=== PATIENT | female | born 1975 | race Caucasian/White ===

== ENCOUNTER 2016-09-28 23:07 | Emergency (ER) | payer OTHER ==
--- NOTE | 2016-09-29 00:43 | EDDOCDS ---
Physician Documentation [facility] Name: Xuan Padron Age: 41 yrs Sex: Female : 1975 Arrival Date: 09/28/2016 Time: 23:07 Bed I4 / M4 Private MD: No Pcp Disposition: 09/29/16 00:17 Discharged to Home/Self Care. Impression: Acute upper respiratory infections of multiple and unspecified sites. - Condition is Stable. - Discharge Instructions: Cool Mist Vaporizers, Upper Respiratory Infection, Adult, Bwmg-fg-Lgpt, Viral Infections, Hqfx-Sx-Uwzb. - Medication Reconciliation, Work Release Form - 1 day, Local Pharmacy Hours form. - [facility]; When: Call to arrange an appointment; Reason: Further diagnostic work-up, Recheck today's complaints, Continuance of care. - Problem is new. - Symptoms are unchanged. Historical: - Allergies: dairy; SEASONAL ALLERGIES; - Home Meds: 1. albuterol sulfate 90 mcg/actuation Inhl aepb 2 puffs prn as needed (Last dose: 09/28/2016 19:30) 2. Zyrtec 10 mg Oral tab 1 tab once daily - PMHx: Asthma; Heart Murmur; pulmonary valve stenosis; - PSHx: Cervical Fusion; Uterine Ablation; - Social history: Smoking status: Patient uses tobacco products, heavy tobacco smoker. No barriers to communication noted, The patient speaks fluent Malay, Speaks appropriately for age, Preferred Language: Malay. - Family history: Not pertinent. - : The pt / caregiver states he / she is not on anticoagulants. Home medication list is obtained from the patient. - Exposure Risk Screening:: None identified. 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 5 in. (165.10 cm) (R); Pain 7/10; 23:09 Body Mass Index 41.60 (113.40 kg, 165.10 cm) gr2 Signatures: Saulo Raines LPN WIGS SALESPERSON rw1 Kamlesh Santizo PA PA btw OgdenMelissa,RN RN ko2 [facility]
--- NOTE | 2016-09-29 00:43 | EDDOCDS ---
Nurse's Notes [facility] Name: Xuan Padron Age: 41 yrs Sex: Female : 1975 Arrival Date: 09/28/2016 Time: 23:07 Bed I4 / M4 Private MD: No Pcp Diagnosis: Acute upper respiratory infections of multiple and unspecified sites Presentation: 09/28 23:22 Presenting complaint: Patient states: hurt all over, coughing and feels like "head is ko2 going to explode with shooting pains in chest and i've been freezing." Pt states everyone at work has had a virus. Adult Sepsis Screening: The patient does not have new or worsening altered mentation. Patient's respiratory rate is less than 22. Systolic blood pressure is greater than 100. Patient has a qSOFA score of 0- Negative Sepsis Screen. Suicide/Homicide risk assessment- the patient denies having any suicidal and/or homicidal ideations and does not present with any other emotional, behavioral or mental health complaints. Status: Patient is not a appliance service representative or dependent. Transition of care: patient was not received from another setting of care. 23:22 Acuity: USAMA Level 4 ko2 23:22 Method Of Arrival: Walkin/Carried/Asstd ko2 Triage Assessment: 23:25 General: Appears in no apparent distress, Behavior is appropriate for age, cooperative. ko2 Pain: Location: All Over. HIV screening NA for this visit Offered previously. The patient is triaged at the bedside. See Assessment in Nurses Notes section of ED record. Neurological: Level of Consciousness is awake, alert, Oriented to person, place, time. Respiratory: Airway is patent Respiratory effort is even, unlabored, Respiratory pattern is regular, symmetrical. Respiratory: Breath sounds are diminished bilaterally. Derm: Skin is normal. Musculoskeletal: Range of motion intact in all extremities. 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 albuterol sulfate 90 mcg/actuation Inhl aepb 2 puffs prn as needed (Last dose: 09/28/2016 19:30) 2. Zyrtec 10 mg Oral tab 1 tab once daily - PMHx: Asthma; Heart Murmur; pulmonary valve stenosis; - PSHx: Cervical Fusion; Uterine Ablation; - Social history: Smoking status: Patient uses tobacco products, heavy tobacco smoker. No barriers to communication noted, The patient speaks fluent Slovenian, Speaks appropriately for age, Preferred Language: Slovenian. - Family history: Not pertinent. - : The pt / caregiver states he / she is not on anticoagulants. Home medication list is obtained from the patient. - Exposure Risk Screening:: None identified. Screenin:26 Screening information is obtained from the patient. Fall risk: No risks identified. ko2 Assistance ADL's: requires no assistance with activities of daily living. Abuse/DV Screen: The patient / caregiver reports he/she is: not in a situation that causes fear, pain or injury. Nutritional screening: No deficits noted. Advance Directives: Currently, there is no health care proxy. There is no active DNR order. There is no living will. There is no Power of Kraft Digester Operator. home support is adequate. Assessment: 09/29 00:40 Reassessment: Patient appears in no apparent distress at this time. rw1 Vital Signs: 09/28 23:09 BP 144 / 75; Pulse 111; Resp 18 S; Temp 101.0(O); Pulse Ox 96% on R/A; Weight 113.4 kg gr2 (R); Height 5 ft. 5 in. (165.10 cm) (R); Pain 7/10; 23:09 Body Mass Index 41.60 (113.40 kg, 165.10 cm) gr2 Vitals: 23:09 Log In Time: September 28, 2016 at 23:09. gr2 ED Course: 23:08 Patient visited by Tammy Stark. gr2 23:08 Patient moved to Waiting gr2 23:09 No Pcp is Private Physician. gr2 23:10 Patient visited by Tammy Stark. gr2 23:10 Patient moved to Pre RCE gr2 23:23 Triage Initiated ko2 23:27 Patient moved to MTA Wait ko2 09/29 00:05 Patient moved to I4 / M4 ko2 00:07 Kamlesh Santizo PA is PHCP. btw 00:07 Joe Bradford DO is Attending Physician. btw 00:07 Patient visited by Kamlesh Santizo PA. btw 00:16 [facility] is Referral Physician. btw 00:40 The patient / caregiver is instructed regarding the plan of care and ED course. rw1 00:40 No IV's were initiated during this patient's visit. No procedures done that require rw1 assistance. Order Results: There are currently no results for this order. Outcome: 00:17 Discharge ordered by Provider. btw 00:40 Discharge Assessment: Patient awake, alert and oriented x 3. No cognitive and/or rw1 functional deficits noted. Patient verbalized understanding of disposition instructions. patient administered narcotics - no. The following High Risk Discharge criteria are identified: None. Discharged to home ambulatory, with family. Condition: stable. Discharge instructions given to patient, Instructed on discharge instructions, follow up and referral plans. Demonstrated understanding of instructions, Pt was receptive of discharge instructions/ teaching. No special radiology studies were completed. Property sent home with patient. 00:42 Patient left the ED. rw1 Signatures: Saulo Raines LPN SKI GUIDE rw1 Kamlesh Santizo PA PA btw Tammy Stark gr2 Melissa Barreto RN RN ko2 Corrections: (The following items were deleted from the chart) 09/28 23:25 23:22 Presenting complaint: Patient states: hurt all over, coughing and feels like ko2 "head is going to explode with shooting pains in chest and i've been freezing." ko2 09/29 00:40 00:40 Reassessment: Patient appears in no apparent distress at this time. Patient rw1 denies pain at this time. rw1 MTDD
--- NOTE | 2016-10-01 01:43 | EDDOCDS ---
Physician Documentation [facility] Name: Xuan Haque Age: 41 yrs Sex: Female : 1975 Arrival Date: 09/28/2016 Time: 23:07 Bed I4 / M4 Private MD: No Pcp Disposition: 09/29/16 00:17 Discharged to Home/Self Care. Impression: Acute upper respiratory infections of multiple and unspecified sites. - Condition is Stable. - Discharge Instructions: Cool Mist Vaporizers, Upper Respiratory Infection, Adult, Vabv-ro-Lpbi, Viral Infections, Nwzd-Xc-Kbdl. - Medication Reconciliation, Work Release Form - 1 day, Local Pharmacy Hours form. - Follow up: [facility]; When: Call to arrange an appointment; Reason: Further diagnostic work-up, Recheck today's complaints, Continuance of care. - Problem is new. - Symptoms are unchanged. Historical: - Allergies: dairy; SEASONAL ALLERGIES; - Home Meds: 1. albuterol sulfate 90 mcg/actuation Inhl aepb 2 puffs prn as needed (Last dose: 09/28/2016 19:30) 2. Zyrtec 10 mg Oral tab 1 tab once daily - PMHx: Asthma; Heart Murmur; pulmonary valve stenosis; - PSHx: Cervical Fusion; Uterine Ablation; - Social history: Smoking status: Patient uses tobacco products, heavy tobacco smoker. No barriers to communication noted, The patient speaks fluent Mohawk, Speaks appropriately for age, Preferred Language: Mohawk. - Family history: Not pertinent. - : The pt / caregiver states he / she is not on anticoagulants. Home medication list is obtained from the patient. - Exposure Risk Screening:: None identified. 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 5 in. (165.10 cm) (R); Pain 7/10; 23:09 Body Mass Index 41.60 (113.40 kg, 165.10 cm) gr2 MDM: 09/29 01:31 [facility] [place] Payment Agreement was scanned into [employer] and attached to record. pm4 09:18 T-Sheet-- Draft Copy was scanned into [employer] and attached to record. klr Signatures: Saulo Raines LPN LPN rw1 Kamlesh Santizo PA PA btw [place], KariRN RN ko2 Tish Rudolph klr David Huffman, Reg Reg pm4 The chart was reviewed and I authenticate all verbal orders and agree with the evaluation and treatment provided.Attachments: 01:31 [facility] [place] Payment Agreement pm4 09:18 T-Sheet-- Draft Copy klr Chart Complete MTDD
--- NOTE | 2016-10-01 01:43 | EDDOCDS ---
Physician Documentation [facility] Name: Xuan Haque Age: 41 yrs Sex: Female : 1975 Arrival Date: 09/28/2016 Time: 23:07 Bed I4 / M4 Private MD: No Pcp Disposition: 09/29/16 00:17 Discharged to Home/Self Care. Impression: Acute upper respiratory infections of multiple and unspecified sites. - Condition is Stable. - Discharge Instructions: Cool Mist Vaporizers, Upper Respiratory Infection, Adult, Bcqp-xy-Flab, Viral Infections, Tawa-Jz-Wjnl. - Medication Reconciliation, Work Release Form - 1 day, Local Pharmacy Hours form. - Follow up: [facility]; When: Call to arrange an appointment; Reason: Further diagnostic work-up, Recheck today's complaints, Continuance of care. - Problem is new. - Symptoms are unchanged. Historical: - Allergies: dairy; SEASONAL ALLERGIES; - Home Meds: 1. albuterol sulfate 90 mcg/actuation Inhl aepb 2 puffs prn as needed (Last dose: 09/28/2016 19:30) 2. Zyrtec 10 mg Oral tab 1 tab once daily - PMHx: Asthma; Heart Murmur; pulmonary valve stenosis; - PSHx: Cervical Fusion; Uterine Ablation; - Social history: Smoking status: Patient uses tobacco products, heavy tobacco smoker. No barriers to communication noted, The patient speaks fluent Slovenian, Speaks appropriately for age, Preferred Language: Slovenian. - Family history: Not pertinent. - : The pt / caregiver states he / she is not on anticoagulants. Home medication list is obtained from the patient. - Exposure Risk Screening:: None identified. 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 5 in. (165.10 cm) (R); Pain 7/10; 23:09 Body Mass Index 41.60 (113.40 kg, 165.10 cm) gr2 MDM: 09/29 01:31 [facility] [place] Payment Agreement was scanned into [employer] and attached to record. pm4 09:18 T-Sheet-- Draft Copy was scanned into [employer] and attached to record. klr Signatures: Saulo Raines LPN LPN rw1 Kamlesh Santizo PA PA btw [place], KariRN RN ko2 Tish Rudolph klr David Huffman, Reg Reg pm4 The chart was reviewed and I authenticate all verbal orders and agree with the evaluation and treatment provided.Attachments: 01:31 [facility] [place] Payment Agreement pm4 09:18 T-Sheet-- Draft Copy klr Chart Complete MTDD
--- NOTE | 2016-10-01 01:43 | EDDOCDS ---
Nurse's Notes [facility] Name: Xuan Haque Age: 41 yrs Sex: Female : 1975 Arrival Date: 09/28/2016 Time: 23:07 Bed I4 / M4 Private MD: No Pcp Diagnosis: Acute upper respiratory infections of multiple and unspecified sites Presentation: 09/28 23:22 Presenting complaint: Patient states: hurt all over, coughing and feels like "head is ko2 going to explode with shooting pains in chest and i've been freezing." Pt states everyone at work has had a virus. Adult Sepsis Screening: The patient does not have new or worsening altered mentation. Patient's respiratory rate is less than 22. Systolic blood pressure is greater than 100. Patient has a qSOFA score of 0- Negative Sepsis Screen. Suicide/Homicide risk assessment- the patient denies having any suicidal and/or homicidal ideations and does not present with any other emotional, behavioral or mental health complaints. Status: Patient is not a oil sales and service rep or dependent. Transition of care: patient was not received from another setting of care. 23:22 Acuity: USAMA Level 4 ko2 23:22 Method Of Arrival: Walkin/Carried/Asstd ko2 Triage Assessment: 23:25 General: Appears in no apparent distress, Behavior is appropriate for age, cooperative. ko2 Pain: Location: All Over. HIV screening NA for this visit Offered previously. The patient is triaged at the bedside. See Assessment in Nurses Notes section of ED record. Neurological: Level of Consciousness is awake, alert, Oriented to person, place, time. Respiratory: Airway is patent Respiratory effort is even, unlabored, Respiratory pattern is regular, symmetrical. Respiratory: Breath sounds are diminished bilaterally. Derm: Skin is normal. Musculoskeletal: Range of motion intact in all extremities. 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 albuterol sulfate 90 mcg/actuation Inhl aepb 2 puffs prn as needed (Last dose: 09/28/2016 19:30) 2. Zyrtec 10 mg Oral tab 1 tab once daily - PMHx: Asthma; Heart Murmur; pulmonary valve stenosis; - PSHx: Cervical Fusion; Uterine Ablation; - Social history: Smoking status: Patient uses tobacco products, heavy tobacco smoker. No barriers to communication noted, The patient speaks fluent French, Speaks appropriately for age, Preferred Language: French. - Family history: Not pertinent. - : The pt / caregiver states he / she is not on anticoagulants. Home medication list is obtained from the patient. - Exposure Risk Screening:: None identified. Screenin:26 Screening information is obtained from the patient. Fall risk: No risks identified. ko2 Assistance ADL's: requires no assistance with activities of daily living. Abuse/DV Screen: The patient / caregiver reports he/she is: not in a situation that causes fear, pain or injury. Nutritional screening: No deficits noted. Advance Directives: Currently, there is no health care proxy. There is no active DNR order. There is no living will. There is no Power of Photographer Model. home support is adequate. Assessment: 09/29 00:40 Reassessment: Patient appears in no apparent distress at this time. rw1 Vital Signs: 09/28 23:09 BP 144 / 75; Pulse 111; Resp 18 S; Temp 101.0(O); Pulse Ox 96% on R/A; Weight 113.4 kg gr2 (R); Height 5 ft. 5 in. (165.10 cm) (R); Pain 7/10; 23:09 Body Mass Index 41.60 (113.40 kg, 165.10 cm) gr2 Vitals: 23:09 Log In Time: September 28, 2016 at 23:09. gr2 ED Course: 23:08 Patient visited by Tammy Stark. gr2 23:08 Patient moved to Waiting gr2 23:09 No Pcp is Private Physician. gr2 23:10 Patient visited by Tammy Stark. gr2 23:10 Patient moved to Pre RCE gr2 23:23 Triage Initiated ko2 23:27 Patient moved to MTA Wait ko2 09/29 00:05 Patient moved to I4 / M4 ko2 00:07 Kamlesh Santizo PA is PHCP. btw 00:07 Joe Bradford DO is Attending Physician. btw 00:07 Patient visited by Kamlesh Santizo PA. btw 00:16 [facility] is Referral Physician. btw 00:40 The patient / caregiver is instructed regarding the plan of care and ED course. rw1 00:40 No IV's were initiated during this patient's visit. No procedures done that require rw1 assistance. 01:31 [facility] Payment Agreement was scanned into [employer] and attached to record. pm4 03:48 Patient name changed from Xuan\\S\\Diane\\S\\Padron\\S\\ to Xuan\\S\\ \\S\\Garland. EDMS 09:18 T-Sheet-- Draft Copy was scanned into [employer] and attached to record. klr Order Results: There are currently no results for this order. Outcome: 00:17 Discharge ordered by Provider. btw 00:40 Discharge Assessment: Patient awake, alert and oriented x 3. No cognitive and/or rw1 functional deficits noted. Patient verbalized understanding of disposition instructions. patient administered narcotics - no. The following High Risk Discharge criteria are identified: None. Discharged to home ambulatory, with family. Condition: stable. Discharge instructions given to patient, Instructed on discharge instructions, follow up and referral plans. Demonstrated understanding of instructions, Pt was receptive of discharge instructions/ teaching. No special radiology studies were completed. Property sent home with patient. 00:42 Patient left the ED. rw1 Signatures: [facility] Saulo Raines LPN PR SPECIALIST rw1 Kamlesh Santizo PA PA btw Tammy Stark gr2 Melissa Barreto RN RN ko2 Tish Rudolph Paul, Reg Reg pm4 Corrections: (The following items were deleted from the chart) 09/28 23:25 23:22 Presenting complaint: Patient states: hurt all over, coughing and feels like ko2 "head is going to explode with shooting pains in chest and i've been freezing." ko2 09/29 00:40 00:40 Reassessment: Patient appears in no apparent distress at this time. Patient rw1 denies pain at this time. rw1 Chart Complete MTDD
== END 2016-09-29 00:42 | disposition home or self-care (01) ==
LOC: M ED 23:07
DX: J06.9 Acute upper respiratory infection, unspecified (principal); J45.909 Unspecified asthma, uncomplicated; R01.1 Cardiac murmur, unspecified; I37.0 Nonrheumatic pulmonary valve stenosis; Z79.899 Other long term (current) drug therapy; Z91.011 Allergy to milk products

== ENCOUNTER 2016-11-11 00:09 | Emergency (ER) | payer OTHER ==
[~2016-11-11] VITALS: Ht 165.1 cm; Wt 113.4 kg
--- NOTE | 2016-11-11 01:20 | REPUSA ---
CLINICAL HISTORY: Neck pain. TECHNIQUE: Multiple axial images were obtained through the cervical spine. Images were also reconstru cted in coronal and sagittal planes. The study was performed without IV contrast. COMMENTS: There is no fracture or spondylolisthesis visualized. The paraspinal soft tissues are unremarkable. T here are no lytic or blastic lesions. Straightening of cervical lordosis is seen, suggesting muscular spasm. There is evidence of minimal m ultilevel disk disease, demonstrated by minimal osteophytosis and endplate sclerosis. No significant disk herniation is noted at any level. Canal and foramina remain patent. IMPRESSION: 1. No fracture or spondylolisthesis. 2. Straightening of cervical lordosis is seen, suggesting muscular spasm. 3. Minimal multilevel spondylosis. Thank you for your kind referral of this patient.
[2016-11-11] MEDS ORDERED: traMADol 50 MG TAB PO ONE (02:00)
[2016-11-11 02:11] VITALS: BP 138/72
--- NOTE | 2016-11-11 08:07 | REP ---
Clinical: Trauma. Technique: Single internal rotation view of the right shoulder. Findings: No acute fracture or dislocation is appreciated. Acromioclavicular and glenohumeral joints appear intact and normal. Surrounding soft tissues unremarkable. Impression: Normal single view of the right shoulder. Signed by Quinton Chung MD 11/11/2016 07:59 A
== END 2016-11-11 02:22 | disposition home or self-care (01) ==
LOC: EDSEX 00:09 → EDBD 00:09 → M ED 01:33
DX: S00.93XA Contusion of unspecified part of head, initial encounter (principal); W20.8XXA Other cause of strike by thrown, projected or falling object, initial encounter; Y92.89 Other specified places as the place of occurrence of the external cause; Y93.89 Activity, other specified; Y99.0 Civilian activity done for income or pay; M25.511 Pain in right shoulder

== ENCOUNTER 2017-04-07 18:38 | Emergency (ER) | payer MEDICAID, OTHER, SELFPAY ==
[~2017-04-07] VITALS: Ht 165.1 cm; Wt 113.6 kg
[2017-04-07] MEDS ORDERED: ZYRT10TA2 PO (18:53)
[2017-04-07 21:18] VITALS: BP 172/96
--- NOTE | 2017-04-08 10:54 | REP ---
RIGHT KNEE SERIES: Five views. HISTORY: Right knee pain. FINDINGS: Five views of the right knee demonstrate medial, lateral, and patellofemoral compartment spur formation. This is unchanged from the February 02, 2016 prior study. No fracture or erosive change is seen. No evidence of joint effusion. IMPRESSION: Moderate three compartment osteoarthritis unchanged from comparison radiograph. Signed by Johnathon Barros MD 04/08/2017 09:22 A
== END 2017-04-07 21:19 | disposition home or self-care (01) ==
LOC: M ED 18:38
DX: M23.91 Unspecified internal derangement of right knee (principal); M17.9 Osteoarthritis of knee, unspecified; F17.200 Nicotine dependence, unspecified, uncomplicated

== ENCOUNTER 2017-04-17 14:52 | Emergency (ER) | payer MEDICAID, SELFPAY ==
[~2017-04-17] VITALS: Ht 165.1 cm; Wt 113.6 kg
[~2017-04-17 14:52] MED LIST: ZYRT10TA2 PO
[2017-04-17] MEDS ORDERED: PERCOCET 5MG/325MG TAB PO ONE (15:30)
--- NOTE | 2017-04-17 16:15 | REP ---
Clinical: Trauma. Fall. . Comparison: 11/11/2016 . Findings: The ventricles, sulci, and cisterns are normal in position and appearance. Villegas-white differentiation is maintained. No acute intracranial hemorrhage, mass/mass effect, pathology or trauma/injury. No evidence for acute infarction. No extra-axial fluid collection. Calvarium is intact. Paranasal sinuses and mastoid air cells are clear. Impression: Normal noncontrast head CT. No evidence for acute intracranial pathology or trauma/injury. Signed by Quinton Chung MD 04/17/2017 04:07 P
--- NOTE | 2017-04-17 16:18 | REP ---
Clinical: Trauma. Fall. Comparison: 11/11/2016. Technique: Axial noncontrast images from the skull base to the thoracic inlet with coronal and sagittal re-formations Findings: Normal alignment and lordosis is maintained. Cervical vertebral bodies including transverse processes and spinous processes are intact and there is no evidence for acute fracture / compression injury or subluxation. Spinal canal is patent. Posterior elements are intact. Paravertebral soft tissues are normal. Impression: Normal noncontrast cervical spine CT. No evidence for acute pathology or trauma/injury. Signed by Quinton Chung MD 04/17/2017 04:10 P
--- NOTE | 2017-04-17 16:35 | REP ---
Clinical: Trauma. Technique: AP, lateral, bilateral oblique and sunrise views to the right knee. Comparison: 04/07/2017. Findings: Early advanced tricompartmental osteoarthritic degenerative changes are again appreciated. Findings remain stable. Isabel view demonstrates mildly decreased soft tissue swelling. No acute fracture or dislocation identified. Impression: Early advanced tricompartmental osteoarthritic degenerative change. Soft-tissue swelling decreased from 04/07/2017. No obvious acute fracture. Signed by Quinton Chung MD 04/17/2017 04:26 P
[2017-04-17] MEDS ORDERED: IBUP-1022 PO (16:41)
[2017-04-17 17:36] VITALS: BP 117/56
== END 2017-04-17 17:37 | disposition home or self-care (01) ==
LOC: EDBD 14:52 → M ED 14:52
DX: S83.91XA Sprain of unspecified site of right knee, initial encounter (principal); S09.90XA Unspecified injury of head, initial encounter; W01.198A Fall on same level from slipping, tripping and stumbling with subsequent striking against other object, initial encounter; Y92.410 Unspecified street and highway as the place of occurrence of the external cause; Y93.01 Activity, walking, marching and hiking; Y99.8 Other external cause status; Z79.899 Other long term (current) drug therapy

== ENCOUNTER 2017-06-24 00:01 | Emergency (ER) | payer MEDICAID, OTHER ==
[~2017-06-24] VITALS: Ht 165.1 cm; Wt 118.1 kg
[~2017-06-24 00:01] MED LIST changes: +IBUP-1022 PO
[2017-06-24] MEDS ORDERED: CIPRODEX AD (03:34)
[2017-06-24] MEDS ORDERED: AMOX500C PO (03:34)
[2017-06-24 03:42] VITALS: BP 137/82
[2017-06-24] MEDS ORDERED: AMOXICILLIN 500 MG CAP PO ONE (03:45)
[2017-06-24] MEDS ORDERED: CIPRODEX OTIC SUSP 7.5ML AD ONE (03:45)
== END 2017-06-24 03:59 | disposition home or self-care (01) ==
LOC: M ED 00:01
DX: H60.11 Cellulitis of right external ear (principal); H65.01 Acute serous otitis media, right ear; F17.200 Nicotine dependence, unspecified, uncomplicated; Z79.899 Other long term (current) drug therapy

== ENCOUNTER 2017-10-26 23:54 | Inpatient (IN) | payer MEDICAID, OTHER ==
[2017-10-27 01:13] LABS: HEMOGLOBIN 13.9 g/dl (12.0-16.0); MEAN CORPUSCULAR HEMOGLOBIN 27.8 pg (27.0-33.0); MEAN CORPUSCULAR HGB CONC 33.9 g/dl (32.0-36.5); PLATELET COUNT, AUTOMATED 299 10^3/uL (150-450); RED CELL DISTRIBUTION WIDTH 12.2 % (11.5-14.5); WHITE BLOOD COUNT 9.3 10^3/uL (4.0-10.0)
[2017-10-27 01:15] LABS: CONTROL LINE HCG INT CTR LINE PRESENT; HCG, SERUM QUALITATIVE NEGATIVE (NEGATIVE)
[2017-10-27 01:32] LABS: ACETAMINOPHEN LEVEL < 2.0 UG/ML (10.0-30.0); ALBUMIN 3.6 GM/DL (3.2-5.2); ALKALINE PHOSPHATASE 84 U/L (45-117); ALT/SGPT 13 U/L (12-78); ANION GAP 7 MEQ/L (8-16); AST/SGOT 17 U/L (7-37); BILIRUBIN,DIRECT < 0.1 MG/DL (0.0-0.2); BILIRUBIN,TOTAL 0.3 MG/DL (0.2-1.0); BLOOD UREA NITROGEN 20 MG/DL (7-18); CALCIUM LEVEL 8.5 MG/DL (8.5-10.1); CARBON DIOXIDE LEVEL 28 MEQ/L (21-32); CHLORIDE LEVEL 103 MEQ/L (98-107); CREATININE FOR GFR 0.82 MG/DL (0.55-1.30); ETHYL ALCOHOL (ETHANOL) < 0.003 % (0.000-0.010); GLOMERULAR FILTRATION RATE > 60.0 (>58); GLUCOSE, FASTING 95 MG/DL (70-100); POTASSIUM SERUM 3.9 MEQ/L (3.5-5.1); SALICYLATE LEVEL 2.5 MG/DL (5.0-30.0); SODIUM LEVEL 138 MEQ/L (136-145); TOTAL PROTEIN 7.2 GM/DL (6.4-8.2)
[2017-10-27 01:50] LABS: AMPHETAMINES LEVEL URINE NEGATIVE (NEGATIVE); BARBITURATES URINE NEGATIVE (NEGATIVE); BENZODIAZEPINES URINE NEGATIVE (NEGATIVE); CANNABINOIDS URINE NEGATIVE (NEGATIVE); COCAINE METABOLITE URINE NEGATIVE (NEGATIVE); METHADONE URINE NEGATIVE (NEGATIVE); OPIATES URINE NEGATIVE (NEGATIVE); PHENCYCLIDINE URINE NEGATIVE (NEGATIVE)
[2017-10-27] MEDS ORDERED: MAALOX 30 ML SUSP *UDC PO (02:15)
[2017-10-27] MEDS ORDERED: traZODone 50 MG TAB PO (02:15)
[2017-10-27] MEDS ORDERED: LORazepam 1 MG TAB PO (02:15)
[2017-10-27] MEDS ORDERED: MOM 30ML SUSPENSION UDC PO (02:15)
[2017-10-27] MEDS ORDERED: CETIRIZINE (ZyrTEC) 10 MG TAB PO (09:30)
[2017-10-27] MEDS ORDERED: VENLAFAXINE **XR** 37.5 MG CAPSULE PO (10:00)
[2017-10-27] MEDS: VENLAFAXINE **XR** 37.5 MG CAPSULE PO (11:26)
[2017-10-27] MEDS: ACETAMINOPHEN TAB 650MG DOSE (2X325MG) PO (13:07)
[2017-10-27] MEDS: traZODone 100 MG TAB PO (21:41)
[2017-10-28] MEDS: VENLAFAXINE **XR** 75MG CAPSULE PO (08:17)
[2017-10-28 08:23] LABS: FREE THYROXINE INDEX 3.4 % (1.3-4.8); T UPTAKE 33 % (30-39); THYROXINE (T4) 10.4 UG/DL (4.5-12.0)
[2017-10-28] MEDS: INFLUENZA QUADRIVALENT PF VACCINE 0.5ML SYRINGE (90686) IM (08:50)
[2017-10-28] MEDS: traZODone 100 MG TAB PO (22:12)
[2017-10-29] MEDS: VENLAFAXINE **XR** 75MG CAPSULE PO (08:11)
[2017-10-29] MEDS: traZODone 100 MG TAB PO (22:13)
[2017-10-30] MEDS: VENLAFAXINE **XR** 75MG CAPSULE PO (08:24)
[2017-10-30] MEDS: traZODone 100 MG TAB PO (22:24)
[2017-10-31] MEDS: VENLAFAXINE **XR** 75MG CAPSULE PO (09:03)
== END 2017-10-31 13:40 | disposition home or self-care (01) | DRG 885 ==
LOC: M ED 23:54 → M ED INP 10-27 02:03 → M PSY 10-27 03:10
DX: F33.2 Major depressive disorder, recurrent severe without psychotic features (principal); R45.851 Suicidal ideations; Z68.42 Body mass index [BMI] 45.0-49.9, adult; F43.10 Post-traumatic stress disorder, unspecified; Z79.899 Other long term (current) drug therapy; F17.200 Nicotine dependence, unspecified, uncomplicated; E66.9 Obesity, unspecified; J30.9 Allergic rhinitis, unspecified

== ENCOUNTER 2018-01-09 02:17 | Emergency (ER) | payer OTHER, MEDICAID ==
[2018-01-09 03:27] LABS: BASO % 0.5 % (0.0-1.0); EOS # 0.1 10^3/uL (0.0-0.50); EOS % 1.6 % (0.0-3.0); HEMATOCRIT 37.6 % (36.0-47.0); HEMOGLOBIN 12.9 g/dl (12.0-15.5); IMMATURE GRANULOCYTE % 0.4 % (0-3.0); LYMPH # 1.7 10^3/uL (1.5-4.5); LYMPH % 19.3 % (24.0-44.0); MEAN CORPUSCULAR HEMOGLOBIN 28.5 pg (27.0-33.0); MEAN CORPUSCULAR HGB CONC 34.3 g/dl (32.0-36.5); MONO # 0.5 10^3/uL (0.0-0.8); NEUTROPHILS # 6.2 10^3/uL (1.8-7.7); NEUTROPHILS % 72.2 % (36.0-66.0); PLATELET COUNT, AUTOMATED 244 10^3/uL (150-450); RED BLOOD COUNT 4.53 10^6/uL (4.00-5.40); RED CELL DISTRIBUTION WIDTH 13.2 % (11.5-14.5); WHITE BLOOD COUNT 8.5 10^3/uL (4.0-10.0)
[2018-01-09 03:31] LABS: CONTROL LINE HCG INT CTR LINE PRESENT; HCG, SERUM QUALITATIVE NEGATIVE (NEGATIVE)
[2018-01-09 03:40] LABS: ALBUMIN 3.5 GM/DL (3.2-5.2); ALBUMIN/GLOBULIN RATIO 1.09 (1.00-1.93); ALKALINE PHOSPHATASE 74 U/L (45-117); ALT/SGPT 18 U/L (12-78); ANION GAP 9 MEQ/L (8-16); AST/SGOT 21 U/L (7-37); BILIRUBIN,DIRECT < 0.1 MG/DL (0.0-0.2); BILIRUBIN,TOTAL 0.3 MG/DL (0.2-1.0); BLOOD UREA NITROGEN 15 MG/DL (7-18); CALCIUM LEVEL 8.2 MG/DL (8.5-10.1); CARBON DIOXIDE LEVEL 24 MEQ/L (21-32); CHLORIDE LEVEL 108 MEQ/L (98-107); CREATININE FOR GFR 0.83 MG/DL (0.55-1.30); GLOMERULAR FILTRATION RATE > 60.0 (>58); GLUCOSE, FASTING 177 MG/DL (70-100); LIPASE 157 U/L (73-393); POTASSIUM SERUM 3.6 MEQ/L (3.5-5.1); SODIUM LEVEL 141 MEQ/L (136-145); TOTAL PROTEIN 6.7 GM/DL (6.4-8.2)
[2018-01-09] MEDS: NS 1,000 ML IV (03:42)
[2018-01-09] MEDS ORDERED: ISOVUE-370 76% 100ML VIAL (Q9967) As Ordered (04:49)
[2018-01-09] MEDS: GI COCKTAIL 50ML BTL(HYOSCYAMINE/MAALOX/LIDOCAINE VISCOUS)(1:3:1) PO (05:15)
[2018-01-09] MEDS: KETOROLAC 30 MG/ML VIAL (J1885) IV (07:05)
== END 2018-01-09 10:15 | disposition home or self-care (01) ==
LOC: M ED 02:17
DX: K80.70 Calculus of gallbladder and bile duct without cholecystitis without obstruction (principal); F17.210 Nicotine dependence, cigarettes, uncomplicated
CPT/HCPCS: Q9967

== ENCOUNTER 2018-01-18 07:23 | Day surgery (SDC) | payer OTHER ==
[2018-01-18] MEDS: LR 1,000 ML IV (07:45)
[2018-01-18] MEDS ORDERED: KETOROLAC 60 MG/2 ML VIAL (J1885) As Ordered (08:53)
[2018-01-18] MEDS ORDERED: ROCURONIUM BROMIDE 50 MG/5 ML VIAL As Ordered (08:53)
[2018-01-18] MEDS ORDERED: dexameTHASONE 4 MG/ML 1ML VIAL (J1100) As Ordered (08:53)
[2018-01-18] MEDS ORDERED: MIDAZOLAM INJ 2 MG/2 ML VIAL (J2250) As Ordered (08:53)
[2018-01-18] MEDS ORDERED: fentaNYL 250 MCG/5 ML INJECTION (J3010) As Ordered (08:53)
[2018-01-18] MEDS ORDERED: ONDANSETRON 4MG/2ML VIAL (J2405) As Ordered (08:53)
[2018-01-18] MEDS ORDERED: LIDOCAINE 2% INJ 100 MG/5 ML SDV (FOR ANES.) As Ordered (08:53)
[2018-01-18] MEDS ORDERED: METOCLOPRAMIDE INJ 10MG/2ML VIAL (J2765) As Ordered (08:53)
[2018-01-18] MEDS ORDERED: PROPOFOL 200 MG/20 ML VIAL As Ordered (08:53)
[2018-01-18] MEDS: LIDOCAINE W/EPINEPHRINE 1% 20ML VIAL As Ordered (09:35)
[2018-01-18] MEDS: PERCOCET 5MG/325MG TAB PO ×2 (10:25→13:00)
[2018-01-18] MEDS ORDERED: NORCO, ANEXSIA 5/325MG TABLET (HYDROcodone/ACETAMINOPHEN) PO (10:30)
[2018-01-18] MEDS ORDERED: LR 1,000 ML IV (10:30)
[2018-01-18] MEDS ORDERED: fentaNYL 100 MCG/2 ML INJECTION (J3010) IV (10:30)
[2018-01-18] MEDS ORDERED: MEPERIDINE INJ 25 MG/ML VIAL (J2175) IV (10:30)
[2018-01-18] MEDS ORDERED: ONDANSETRON 4MG/2ML VIAL (J2405) IV (10:30)
[2018-01-18] MEDS ORDERED: METOCLOPRAMIDE INJ 10MG/2ML VIAL (J2765) IV (10:30)
[2018-01-18] MEDS ORDERED: PERCOCET 5MG/325MG TAB As Ordered (13:00)
== END 2018-01-18 14:13 | disposition home or self-care (01) ==
LOC: M SDC 07:23
DX: K80.18 Calculus of gallbladder with other cholecystitis without obstruction (principal); F41.9 Anxiety disorder, unspecified; F32.9 Major depressive disorder, single episode, unspecified; Z87.891 Personal history of nicotine dependence
CPT/HCPCS: 47562

== ENCOUNTER → 2018-02-09 | Outpatient (REF) | payer OTHER | LOC: M SFHCADAM 12:31 | DX: Z01.419 Encounter for gynecological examination (general) (routine) without abnormal findings (principal) ==

== ENCOUNTER → 2018-03-28 | Outpatient (CLI) | payer OTHER ==
[~2018-03-28] MED LIST changes: -IBUP-1022 PO; +ISOVUE-370 76% 100ML VIAL (Q9967) As Ordered; -ZYRT10TA2 PO
== END ==
LOC: M RAD 17:03
DX: R91.8 Other nonspecific abnormal finding of lung field (principal)
CPT/HCPCS: Q9967

== ENCOUNTER → 2018-07-12 | Outpatient (REF) | payer OTHER | LOC: M LAB REF 18:55 | DX: J00 Acute nasopharyngitis [common cold] (principal) | CPT/HCPCS: 87081 ==

== ENCOUNTER 2018-07-20 14:47 | Emergency (ER) | payer OTHER ==
[~2018-07-20 14:47] MED LIST changes: -ISOVUE-370 76% 100ML VIAL (Q9967) As Ordered; +NORCO, ANEXSIA 5/325MG TABLET (HYDROcodone/ACETAMINOPHEN) As Ordered
[2018-07-20] MEDS: NORCO, ANEXSIA 5/325MG TABLET (HYDROcodone/ACETAMINOPHEN) PO (15:17)
== END 2018-07-20 16:39 | disposition home or self-care (01) ==
LOC: M ED 14:47
DX: S80.10XA Contusion of unspecified lower leg, initial encounter (principal); W19.XXXA Unspecified fall, initial encounter; M19.90 Unspecified osteoarthritis, unspecified site; Y92.89 Other specified places as the place of occurrence of the external cause; F17.210 Nicotine dependence, cigarettes, uncomplicated
CPT/HCPCS: 73564

== ENCOUNTER 2018-09-11 15:23 | Emergency (ER) | payer OTHER ==
[~2018-09-11] VITALS: Ht 165.1 cm; Wt 103.2 kg
[~2018-09-11 15:23] MED LIST changes: +AMOX500C PO; +AUGM875T28 PO; +BIOT2500 PO; +CIPRODEX AD; +DRIS50003 PO; +IBUP-1022 PO; +MULT1TAB18 PO; -NORCO, ANEXSIA 5/325MG TABLET (HYDROcodone/ACETAMINOPHEN) As Ordered; +NORCOTAB PO; +OMEP10CASR PO; +TRAZ10TA PO; +VENL150C43 PO; +VENL75CA2 PO; +VENL75CA47 PO; +ZYRT10CA5 PO
[2018-09-11] MEDS ORDERED: ACETAMINOPHEN TAB 650MG DOSE (2X325MG) PO ONE (15:45)
--- NOTE | 2018-09-11 16:14 | REP ---
Head CT without contrast: History: Severe pain. Status post slip and fall. Comparison CT study April 17, 2017. CT findings: Bone window settings demonstrate an intact bony calvarium. There is no evidence of skull fracture or incidental bony calvarial lesion. The visualized paranasal sinuses appear clear. No intraorbital abnormality is seen. On soft tissue window setting images; the lateral, third, and fourth ventricles are normal in size and position. Villegas-white differentiation pattern is normal above and below the tentorium. There are is no evidence of intracranial hemorrhage. No mass, edema, infarction, or midline shift is seen. No extra-axial fluid collection is appreciated. Impression: Negative noncontrast head CT. Electronically Signed by Johnathon Barros MD 09/11/2018 04:05 P
[2018-09-11] MEDS ORDERED: ONDANSETRON 4MG/2ML VIAL (J2405) IV ONE (16:15)
--- NOTE | 2018-09-11 16:15 | REP ---
CT study of the cervical spine without contrast: History: Pain after slipping fall. Technique: Helical scanning is acquired and overlapping 2 mm high resolution axial images were generated and reviewed at bone and soft tissue window settings. Coronal and sagittal multiplanar re-formations images are generated. CT findings: There is no evidence of cervical spine element fracture. No skull base fracture is seen. Cervical vertebral body heights are preserved. Alignment is normal. Facet joints are normally aligned bilaterally at each cervical level on multiplanar re-formations images. There is no evidence of intraspinal or paraspinal hematoma. No extra vertebral abnormality is seen. There is straightening of the normal cervical lordosis. Osteoarthritic changes are seen at the C1-2 articulation and early discogenic spurring is seen anteriorly at C 04/05 and C5-6. Impression: Minimal spondylosis changes, otherwise negative CT study of the cervical spine without contrast. No fracture seen. Electronically Signed by Johnathon Barros MD 09/11/2018 04:07 P
[2018-09-11] MEDS ORDERED: NS 1,000 ML IV ONE (16:45)
[2018-09-11] MEDS ORDERED: NAPR-50 PO (19:11)
[2018-09-11 19:23] VITALS: BP 128/72
== END 2018-09-11 19:24 | disposition home or self-care (01) ==
LOC: M ED 15:23 → EDBD 15:23 → M ED 19:24
DX: S16.1XXA Strain of muscle, fascia and tendon at neck level, initial encounter (principal); S06.0X0A Concussion without loss of consciousness, initial encounter; W18.40XA Slipping, tripping and stumbling without falling, unspecified, initial encounter; Y92.89 Other specified places as the place of occurrence of the external cause; Y93.9 Activity, unspecified; Y99.9 Unspecified external cause status; Z79.899 Other long term (current) drug therapy
CPT/HCPCS: 70450; 72125; 96361; 96374; 99284; J2405